=== PATIENT | male | born 1965 | race Caucasian/White ===

== ENCOUNTER 2016-05-28 12:52 | Emergency (ER) | payer MEDICAID ==
[~2016-05-28] VITALS: Ht 203.2 cm; Wt 93.0 kg
[2016-05-28 13:10] VITALS: BP 125/82
[2016-05-28] MEDS ORDERED: ONDANSETRON HCL 4 MG/2 ML VIAL IM ONE (15:15)
[2016-05-28] MEDS ORDERED: HYDROmorphone HCL 2 MG/ML VL IM ONE (15:15)
== END 2016-05-28 15:41 | disposition home or self-care (01) ==
LOC: ER 12:52
DX: S70.01XA Contusion of right hip, initial encounter (principal); S80.01XA Contusion of right knee, initial encounter; S70.11XA Contusion of right thigh, initial encounter; W01.0XXA Fall on same level from slipping, tripping and stumbling without subsequent striking against object, initial encounter; Y93.01 Activity, walking, marching and hiking; Y99.8 Other external cause status; Y92.832 Beach as the place of occurrence of the external cause
CPT/HCPCS: 73502; 73564; 96372; 99284; J1170; J2405

== ENCOUNTER 2017-03-20 00:23 | Emergency (ER) | payer MEDICAID ==
[~2017-03-20] VITALS: Ht 205.7 cm; Wt 145.1 kg
[2017-03-20 00:48] LABS: Urine RBC None Seen /hpf (0 - 3)
[2017-03-20 00:57] LABS: Urine Bilirubin Negative (Negative); Urine Blood Negative /uL (Negative); Urine Color Yellow (Yellow); Urine Glucose Normal (Normal); Urine Ketone Negative (Negative); Urine Nitrite Negative (Negative); Urine Urobilinogen Normal (Negative); Urine pH 5.5 (5.0-8.0)
[2017-03-20 01:03] LABS: Basophils # (auto) 0.1 uL; Basophils % (auto) 1.4 % (0.0-2.0); Eosinophils # (auto) 0.3 uL; Eosinophils % (auto) 4.9 % (0.0-7.0); Hematocrit 40.8 % (41.0-53.0); Hemoglobin 14.2 g/dL (13.5-17.5); Lymphocytes # (auto) 1.8 uL; Lymphocytes % (auto) 26.9 % (10.0-50.0); Mean Corpuscular Hemoglobin 29.4 pg (28.0-32.0); Mean Corpuscular Hgb Conc. 34.7 g/dL (32.0-36.0); Mean Corpuscular Volume 84.9 fL (80.0-100.0); Mean Platelet Volume 7.3 fL (6.9-10.8); Monocytes # (auto) 0.5 uL; Monocytes % (auto) 7.1 % (0.0-12.0); Neutrophils # (auto) 4.1 uL; Neutrophils % (auto) 59.7 % (37.0-80.0); Platelet Count (auto) 219 10^3/uL (140-450); Red Cell Distribution Width 14.1 % (11.8-14.3); White Blood Cell 6.9 10^3/uL (4.4-10.8)
[2017-03-20 01:22] LABS: Albumin 3.9 g/dL (3.4-5.0); BUN/Creatinine Ratio 15.9; Calcium 8.1 mg/dL (8.5-10.1); Potassium 4.1 mmol/L (3.5-5.1)
[2017-03-20 01:24] LABS: Bilirubin, Total 0.4 mg/dL (0.2-1.0); Total Protein 7.2 g/dL (6.4-8.2)
[2017-03-20 01:25] LABS: B-Type Natriuretic Peptide 6.1 pg/mL (0-100)
[2017-03-20 01:26] LABS: Temperature: 21.9 C (20.0-25.0)
[2017-03-20 04:33] VITALS: BP 138/63
== END 2017-03-20 04:38 | disposition left against medical advice (07) ==
LOC: ER 00:24
DX: R07.9 Chest pain, unspecified (principal); Z53.21 Procedure and treatment not carried out due to patient leaving prior to being seen by health care provider
CPT/HCPCS: 36415; 71010; 74176; 80053; 80307; 81001; 83880; 84484; 85025; 93005

== ENCOUNTER 2017-09-10 21:07 | Emergency (ER) | payer MEDICAID ==
[~2017-09-10] VITALS: Ht 205.7 cm; Wt 133.8 kg
[2017-09-11 02:55] VITALS: BP 134/97
== END 2017-09-11 04:45 | disposition home or self-care (01) ==
LOC: ER 21:07
DX: S00.90XA Unspecified superficial injury of unspecified part of head, initial encounter (principal); R51 Headache; X58.XXXA Exposure to other specified factors, initial encounter; Y93.89 Activity, other specified; Y99.8 Other external cause status; Y92.89 Other specified places as the place of occurrence of the external cause
CPT/HCPCS: 70450

== ENCOUNTER 2018-01-06 12:39 | Emergency (ER) | payer MEDICAID ==
[~2018-01-06] VITALS: Ht 205.7 cm; Wt 136.1 kg
[2018-01-06 15:41] VITALS: BP 128/88
== END 2018-01-06 16:27 | disposition home or self-care (01) ==
LOC: ER 12:39
DX: S82.891A Other fracture of right lower leg, initial encounter for closed fracture (principal); X50.1XXA Overexertion from prolonged static or awkward postures, initial encounter; Y93.01 Activity, walking, marching and hiking; Y92.89 Other specified places as the place of occurrence of the external cause; Y99.8 Other external cause status
CPT/HCPCS: 29515; 73700